=== PATIENT | female | born 2000 | race Caucasian/White ===

== ENCOUNTER 2018-04-24 07:09 | Inpatient (IN) | payer OTHER ==
[2018-04-24] MEDS ORDERED: POLYCILLIN/NS 2 GM/100 ML 2 GM/100 ML BAG IV ONE (07:36)
[2018-04-24] MEDS ORDERED: PITOCin/NS 20 UNIT/1000ML DRIP 20,000 MILLIUNITS/1,000 ML BAG IV ONE (07:36)
[2018-04-24] MEDS ORDERED: LACTATED RINGERS 1,000 ML ONE (07:36)
--- NOTE | 2018-04-24 07:50 | History and Physical Report ---
History of Present Illness Date of examination: 04/24/18 Date of admission: 04/24/18 07:10 History of present illness: 17 yo LMP EDC 04/25/18 @ 39.6 weeks gestation, presented to triage transitional labor. Direct admit. +GBS, attempting to infuse antibiotics. Patient is late entry into care at 24 weeks gestation. course course complicated by positive trichomonas and chamydia with positive CHRISTO for trichomonas. retreated and repeat CHRISTO pending. Past History Past Medical History: no pertinent history [employer] History: chlamydia, trichomonas Family/Genetic History: diabetes Social history: no significant social history, single - Obstetrical History Expected Date of Delivery: 04/25/18 Actual Gestation: 39 Week(s) 6 Day(s) : 3 Para: 2 Hx # Term Pregnancies: 2 Number of Living Children: 2 Medications and Allergies Allergies Allergy/AdvReac Type Severity Reaction Status Date / Time shellfish derived Allergy Swelling Verified 01/06/16 06:49 Home Medications Medication Instructions Recorded Confirmed Last Taken Type Nitrofurantoin [place]/M-Cryst 100 mg PO Q12HR #14 capsule 03/06/15 07/29/15 Unknown Rx [Macrobid CAP] Acetaminophen/Codeine [Tylenol 1 tab PO Q4HR PRN #30 tablet 07/30/15 Unknown Rx /Codeine # 3 tab] Ferrous Sulfate [Feosol 325 MG tab] 325 mg PO BID #60 tablet 07/30/15 Unknown Rx Ibuprofen [Motrin 600 MG tab] 600 mg PO Q6H PRN #30 tablet 07/30/15 Unknown Rx Review of Systems All systems: negative Genitourinary: normal appearance, contractions Rectal Exam: deferred - Vital Signs Vital signs: Vital Signs Pulse BP 93 H 120/60 04/24/18 07:28 04/24/18 07:28 Temp Pulse Resp BP Pulse Ox 91 H 132/77 97 04/24/18 07:43 04/24/18 07:42 04/24/18 07:43 - Physical Exam Breasts: Positive: deferred Abdomen: Positive: normal appearance Genitourinary (Female): Positive: normal external genitalia, normal perenium - Obstetrical FHR: category 1 Uterine Contraction Monitor Mode: External Cervical Dilatation: 8 Cervical Effacement Percentage: 80 station: 0 Uterine Contraction Pattern: Regular Uterine Tone Measurement Phase: Resting Uterine Contraction Intensity: Strong/Firm Results All other labs normal. Assessment and Plan A: IUP at 39.6 weeks gestation Transitional Labor GBS Positive P: AROM clear fluid Anticipate
[2018-04-24] MEDS ORDERED: PITOCin/NS 30 UNIT/500ML 30 UNITS/500 ML BAG IV SCH ×2 (08:00)
[2018-04-24] MEDS ORDERED: LACTATED RINGERS 1,000 ML IV SCH (08:00)
[2018-04-24 08:28] LABS: Mean Corpuscular HGB Conc 32 % (30-34); Mean Corpuscular Hemoglobin 27 pg (28-32); Mean Corpuscular Volume 83 fl (79-97); Platelet Count 261 K/mm3 (140-440); Red Blood Count 4.08 M/mm3 (3.65-5.03); Red Cell Distribution Width 15.6 % (13.2-15.2)
[2018-04-24] MEDS ORDERED: STADOL IV PRN (08:30)
[2018-04-24] MEDS ORDERED: ePHEDrine SULFATE IV PRN (08:30)
[2018-04-24] MEDS ORDERED: MINERAL OIL PO PRN (08:30)
[2018-04-24] MEDS ORDERED: SUBLIMAZE IV PRN (08:30)
[2018-04-24] MEDS ORDERED: XYLOCAINE 2% INFILTRATI NR (08:30)
[2018-04-24] MEDS ORDERED: METHERGINE IM ONE ×2 (08:55→09:14)
[2018-04-24] MEDS ORDERED: POLYCILLIN/NS 2 GM/100 ML 2 GM/100 ML BAG IV NR (09:00)
--- NOTE | 2018-04-24 09:14 | Procedure Note ---
OB Delivery Note - Delivery Date of Delivery: 04/24/18 (8-1 oz male @ 0849) Surgeon: ROSEMARY SALINAS Estimated blood loss: 300cc - Vaginal Delivery presentation: vertex Delivery position: OA Intrapartum events: precipitous labor- <3hr Delivery induction: none Delivery augmentation: rupture of membranes Delivery monitor: external FHT, external uterine Route of delivery: Delivery placenta: spontaneous Delivery cord: 3 umbilical vessels Episiotomy: none Delivery laceration: 1st degree (approximates well, not bleeding, not reparied) Anesthesia: none - Infant A at 1 minute: 8 at 5 minutes: 9 Infant Gender: Male (Pushed for viable male, bulbed suctioned and placed skin to skin. Spont. placenta. Bleeding heavy, fundus messaged firm, bleeding decreased then increased. Methergine given IM. Bleeding small. Laceration as noted)
[2018-04-24] MEDS ORDERED: SODIUM CHLORIDE FLUSH SYRINGE 10 ML IV PRN (10:00)
[2018-04-24] MEDS: MOTRIN PO SCH ×2 (10:11→23:28)
[2018-04-24] MEDS ORDERED: BENADRYL PO PRN (10:30)
[2018-04-24] MEDS ORDERED: TYLENOL PO PRN (10:30)
[2018-04-24] MEDS ORDERED: NUBAIN IV PRN (10:30)
[2018-04-24] MEDS ORDERED: BRETHINE IVP PRN (10:30)
[2018-04-24] MEDS ORDERED: BRETHINE SUB-Q PRN (10:30)
[2018-04-24] MEDS ORDERED: TUCKS PAD TP PRN (10:30)
[2018-04-24] MEDS ORDERED: NORCO 5/325 PO PRN (10:30)
[2018-04-24] MEDS ORDERED: PITOCin/NS 20 UNIT/1000ML DRIP 20 UNITS/1,000 ML BAG IV SCH (10:30)
[2018-04-24] MEDS ORDERED: LANSINOH TP PRN (10:30)
[2018-04-24] MEDS ORDERED: DULCOLAX PR PRN (12:00)
[2018-04-24] MEDS ORDERED: AMPICILLIN/NS 1 GM/50 ML 1 GM/50 ML BAG IV SCH (12:00)
[2018-04-24] MEDS: MOTRIN PO PRN (18:55)
[2018-04-24] MEDS ORDERED: MILK OF MAGNESIA PO PRN (22:00)
[2018-04-24 22:02] LABS: Hematocrit 29.5 % (30.3-42.9); Hemoglobin 9.6 gm/dl (10.1-14.3)
--- NOTE | 2018-04-25 07:58 | Progress Note ---
Assessment and Plan - Patient Problems (1) (normal spontaneous vaginal delivery) Current Visit: No Status: Acute Plan to address problem: Patient doing well Routine care Subjective - Subjective Date of service: 04/25/18 Interval history: Patient without any significant complaints. Pain well controlled Patient reports: appetite normal, voiding normally, pain well controlled : doing well Objective - Vital Signs Latest vital signs: Vital Signs Temp Pulse Resp BP BP Pulse Ox 04/25/18 04:00 98.7 F 72 16 114/69 04/24/18 23:30 98.4 F 84 18 122/70 04/24/18 19:30 98.7 F 91 H 16 116/63 04/24/18 16:04 98.3 F 73 20 104/61 95 04/24/18 11:05 97.9 F 85 18 132/57 98 04/24/18 10:45 81 130/72 04/24/18 10:30 77 134/72 04/24/18 10:15 84 135/79 04/24/18 10:00 78 141/86 04/24/18 09:45 81 137/85 04/24/18 09:30 85 142/85 04/24/18 09:15 92 H 135/85 04/24/18 08:49 89 99 04/24/18 08:44 94 H 98 04/24/18 08:42 90 133/58 04/24/18 08:39 98 H 98 04/24/18 08:34 95 H 99 04/24/18 08:29 95 H 98 04/24/18 08:27 96 H 134/86 04/24/18 08:24 96 H 99 04/24/18 08:19 76 83 L 04/24/18 08:16 85 04/24/18 08:13 93 H 156/100 100 04/24/18 08:08 94 H 98 04/24/18 08:03 103 H 98 Intake and Output 04/24/18 04/25/18 04/25/18 22:59 06:59 14:59 Intake Total 660 300 Output Total 800 700 Balance -140 -400 Intake: Oral 360 Intake, Free Water 300 300 Output: Urine 800 700 Void 800 700 Other: Total, Intake Amount 360 Total, Output Amount 800 700 # Voids Void 1 1 - Exam Uterus: Present: normal, firm - Labs Labs: Abnormal lab results 04/24/18 04/24/18 Range/Units 08:00 21:38 Hgb 9.6 L (10.1-14.3) gm/dl Hct 29.5 L (30.3-42.9) % MCH 27 L (28-32) pg RDW 15.6 H (13.2-15.2) %
--- NOTE | 2018-04-25 07:59 | Discharge Summary ---
Providers - Providers Date of Admission: 04/24/18 07:10 Date of discharge: 04/25/18 Attending physician: GUILLERMO CAICEDO Primary care physician: GUILLERMO CAICEDO Hospitalization Reason for admission: active labor Delivery: Discharge diagnosis: IUP at term delivered baby: male Hospital course: The patient was admitted to labor and delivery in active labor. She had a normal spontaneous vaginal delivery. course was uncomplicated. Condition at discharge: Good Disposition: DC-01 TO HOME OR SELFCARE - Discharge Diagnoses (1) (normal spontaneous vaginal delivery) Status: Acute Plan - Discharge Medications Prescriptions: HYDROcodone/APAP 5-325 [[place] 5/325] 1 each PO Q6HR PRN #30 tablet PRN Reason: Pain Ibuprofen [Motrin] 800 mg PO Q8HR PRN #60 tablet PRN Reason: Pain - Provider Discharge Summary Activity: no sex for 6 weeks, no heavy lifting 4 weeks, no strenuous exercise Diet: routine Instructions: routine Additional instructions: [] Smoking cessation referral if applicable(refer to patient education folder for contact #) [] Refer to [facility] Booklet Call your doctor immediately for: * Fever > 100.5 * Heavy vaginal bleeding ( >1 pad per hour) * Severe persistent headache * Shortness of breath * Reddened, hot, painful area to leg or breast * Follow-up in 4 weeks for appointment - Follow up plan
[2018-04-25] MEDS: MOTRIN PO PRN (17:28)
[2018-04-26 10:24] VITALS: BP 111/69
== END 2018-04-26 12:00 | disposition home or self-care (01) | DRG 774 ==
LOC: TRG 07:09 → LD 07:10 → TRG 07:12 → OB 11:17
PROVIDERS: ADMIT Obstetrics & Gynecology; ATTEND Obstetrics & Gynecology
PROC: 10E0XZZ Delivery of Products of Conception, External Approach (ICD-10-PCS; principal; 2018-04-24)
DX: O62.3 Precipitate labor (principal); O98.82 Other maternal infectious and parasitic diseases complicating childbirth; O99.824 Streptococcus B carrier state complicating childbirth; O70.0 First degree perineal laceration during delivery; Z3A.39 39 weeks gestation of pregnancy; Z37.0 Single live birth; Z91.013 Allergy to seafood; Z83.3 Family history of diabetes mellitus; A59.9 Trichomoniasis, unspecified; O75.89 Other specified complications of labor and delivery
CPT/HCPCS: 36415; 85014; 85018; 85027; 86850; 86900; 86901; 99211; G0463; J0290; J2210; J2590; J3010; J7120